=== PATIENT | female | born 1940 | race Native Hawaiian/Other Pacific Islander ===

== ENCOUNTER 2017-06-22 08:18 | Outpatient (CLI) | payer OTHER, MEDICARE | END 2017-06-22 21:15 | disposition home or self-care (01) | LOC: LABW 08:18 | DX: M06.4 Inflammatory polyarthropathy (principal); R70.0 Elevated erythrocyte sedimentation rate; D64.9 Anemia, unspecified | CPT/HCPCS: 36415; 82728; 83883; 84155; 84156; 84165; 86335 ==

== ENCOUNTER 2017-07-25 10:15 | Outpatient (CLI) | payer OTHER, MEDICARE ==
[2017-07-25 12:04] LABS: POTASSIUM 4.3 mmol/L (3.6-5.2); SODIUM 131 mmol/L (136-145)
== END 2017-07-25 11:15 | disposition home or self-care (01) ==
LOC: LABW 10:15
PROVIDERS: Nurse Practitioner Family
DX: M06.4 Inflammatory polyarthropathy (principal); M75.111 Incomplete rotator cuff tear or rupture of right shoulder, not specified as traumatic; M75.112 Incomplete rotator cuff tear or rupture of left shoulder, not specified as traumatic; R70.0 Elevated erythrocyte sedimentation rate; R80.8 Other proteinuria
CPT/HCPCS: 36415; 80053; 84165; 84550; 86140; 86335

== ENCOUNTER 2021-06-22 10:45 | Outpatient (CLI) | payer OTHER, MEDICARE | END 2021-06-22 20:02 | disposition home or self-care (01) | LOC: MAMMO 10:45 | PROVIDERS: ATTEND Physician Assistant Medical | DX: Z12.31 Encounter for screening mammogram for malignant neoplasm of breast (principal) ==

== ENCOUNTER 2022-07-04 13:02 | Outpatient (CLI) | payer OTHER | END 2022-07-04 19:14 | disposition home or self-care (01) | LOC: MAMMO 13:02 | PROVIDERS: ATTEND Physician Assistant Medical | DX: Z12.31 Encounter for screening mammogram for malignant neoplasm of breast (principal) ==

== ENCOUNTER 2023-09-24 10:21 | Outpatient (CLI) | payer OTHER | END 2023-09-24 19:29 | disposition home or self-care (01) | LOC: MAMMO 10:21 | PROVIDERS: ATTEND Physician Assistant Medical | DX: Z12.31 Encounter for screening mammogram for malignant neoplasm of breast (principal) ==